=== PATIENT | female | born 1995 | race Two or more races ===

== ENCOUNTER 2016-10-03 12:28 | Emergency (ER) | payer MEDICAID ==
[2016-10-03 12:43] VITALS: BP 141/62; PULSE 74; RESP 18; TEMP 98; O2SAT 97
--- NOTE | 2016-10-03 13:19 | UCPHY ---
H & P Patient Type: New Smoking Status: Never smoked Time Seen by Provider: 10/03/16 13:02 HPI/ROS: HPI Left lower quadrant pain. 20-year-old female by private vehicle. This patient presents to Urgent Care complaining of intermittent crampy, stabbing the left lower quadrant pain onset yesterday. She reports that also has been associated with some vaginal bleeding which she describes as spotting on her underwear. She reports her last menstrual period was 3 months ago. She has a history of polycystic ovarian syndrome and she is currently on metformin for this. She also reports having a hard bowel movement yesterday but no blood per rectum and no bloody stool. She reports a normal bowel movement today. She has not had a fever. She has had no diarrhea or vomiting. No nausea. Last meal was prior to arrival at 12 noon. ROS: Constitutional: No fever, no chills. No weakness. Eyes: No discharge. No changes in vision. ENT: No sore throat. No nasal congestion or rhinorrhea. Respiratory: No cough. No shortness of breath. Cardiac: No chest pain, no palpitations. Gastrointestinal: As above, no vomiting, no diarrhea. Genitourinary: No hematuria. No dysuria or increased frequency with urination. As above. Musculoskeletal: No back pain. No neck pain. No myalgias or arthralgias. Skin: No rashes. Neurological: No headache. No focal weakness or altered sensation. Past medical history: Polycystic ovarian disease. She is on metformin. UTIs Social history: Here by herself. Nonsmoker. Physical Exam: General Appearance: Alert, no distress. Obese habitus. This patient is responding to questions appropriately and in full sentences. This patient appears well-hydrated and well-nourished. Eyes: Pupils equal and round no pallor or injection. No lid edema, erythema or injection. Respiratory: There are no retractions, lungs are clear to auscultation with good air movement bilaterally. Cardiovascular: Regular rate and rhythm. No murmur. Gastrointestinal: Obese habitus. Abdomen is soft with mild to moderate left lower quadrant tenderness on palpation, no masses, bowel sounds normal. No focal tenderness at McBurney's point. No Rondon sign. Neurological: Motor sensory function is grossly intact. Cranial nerves are normal. Gait is normal. Skin: Warm and dry, no rashes. Musculoskeletal: Neck is supple and nontender. Extremities are symmetrical. All joints range without pain or impingement. Psychiatric: No agitation. No depression. Database: EKG: Imaging: Upright abdominal x-ray series: No obstructive pattern. No free air. Some constipation. Interpreted by me. Pelvic ultrasound: Procedures: Emergency department course: Urine specimen obtained. Plan is to evaluate pelvic anatomy with ultrasound. Another likely source of pain is constipation. Upright abdominal x-ray series and pelvic ultrasound to be obtained. Patient given 600 mg of ibuprofen. Vital signs reviewed and are unremarkable 3:00 p.m., patient re-evaluated. She is sitting upright on the gurney using her cell phone. She appears comfortable. Results of her urinalysis, urine and abdominal x-ray were discussed with her. We are waiting the results of her pelvic ultrasound. 3:05 p.m., patient re-evaluated. She seems very comfortable. She has not had any further vaginal bleeding in the urgent care. Still awaiting results of ultrasound. Care will be turned over to Dr. Saud Maxwell at this time. Repeat abdominal exam on this patient, she was soft, nontender nondistended. She does not have any pain at this time. She does not have any contraindications to NSAIDs. Plan will be to discharge her, assuming no significant findings on her ultrasound, and have her follow up with her primary care physician for re-evaluation. Return to Urgent Care/emergency department precautions have been discussed with her. Follow-up was thoroughly reviewed. Differential Diagnosis: The differential diagnosis on this patient includes but is not limited to ovarian cyst, constipation, ureterolithiasis, dysfunctional uterine bleeding. Diverticulitis, volvulus, ectopic , urinary tract infection unlikely. This represents a partial list of diagnoses considered. These considerations are based on history, physical exam, past history, reassessment and diagnostic testing. (Raphael Lipscomb) Constitutional: Initial Vital Signs Temperature (C) 36.6 C 10/03/16 12:41 Heart Rate 74 10/03/16 12:41 Respiratory Rate 18 10/03/16 12:41 Blood Pressure 141/62 H 10/03/16 12:41 O2 Sat (%) 97 10/03/16 12:41 O2 Delivery Mode Room Air Allergies/Adverse Reactions: No Known Allergies Allergy (Verified 01/01/15 16:09) Home Medications: Medication Instructions Recorded Metformin HCl 10/03/16 Medical Decision Making - Diagnostics Imaging: Pelvic ultrasound: Ovaries not clearly visualized but no overt findings for enlarged ovaries, so this. There is no free fluid. Uterus appears normal per Dr. Eden, radiologist (Saud Maxwell) ED Course/Re-evaluation: I discussed the patient's ultrasound findings with her. The time of discharge she is comfortable. I think that her symptoms are attributable to constipation. (Saud Maxwell) - Data Points Laboratory Results: 10/03/16 10/03/16 13:05 13:05 Urine Color YELLOW Urine Appearance CLEAR Urine pH 5.5 (5.0-7.5) Ur Specific [place] 1.010 (1.002-1.030) Urine Protein 1+ H (NEGATIVE) Urine Ketones NEGATIVE (NEGATIVE) Urine Blood 3+ H (NEGATIVE) Urine Nitrate NEGATIVE (NEGATIVE) Urine Bilirubin NEGATIVE (NEGATIVE) Urine Urobilinogen 0.2 EU EU (0.2-1.0) Ur Leukocyte Esterase TRACE H (NEGATIVE) Urine RBC 50-182 /hpf H /hpf (0-3) Urine WBC 10-15 /hpf H /hpf (0-3) Ur Epithelial Cells TRACE /lpf /lpf (NONE-1+) Urine Bacteria 2+ /hpf H /hpf (NONE SEEN) Ur Culture Indicated? INDICATED H (NI) Urine Glucose NEGATIVE (NEGATIVE) Urine Test NEGATIVE Departure - Departure Disposition: Home, Routine, Self-Care Clinical Impression: Vaginal bleeding, Abdominal pain, left lower quadrant Condition: Good Instructions: Dysfunctional Uterine Bleeding (ED), Constipation (ED), High Fiber Diet (ED), Abdominal Pain (ED) Additional Instructions: Read and follow provided instructions. Follow-up with your primary care physician as discussed in 1-2 days for re- evaluation. Ibuprofen dosin mg every 6 hours with meals for the next 3 days only as needed for pain. Return to the emergency department or urgent care for worsening abdominal pain, fever, vomiting, bloody stool, worsening vaginal bleeding or other serious concerns. Referrals: Mar Mccoy MD [Primary Care Provider] - As per Instructions - PQRS PQRS Measurement: Not applicable. (Raphael Lipscomb)
[2016-10-03 13:22] LABS: COLOR YELLOW; LEUKOCYTE ESTERASE,URINE TRACE (NEGATIVE); NITRITE,URINE NEGATIVE (NEGATIVE); PH,URINE 5.5 (5.0-7.5)
[2016-10-03 13:30] LABS: BACTERIA 2+ /hpf (NONE SEEN); RBC,URINE 50-182 /hpf (0-3)
== END 2016-10-03 15:45 | disposition home or self-care (01) ==
LOC: CED 12:28
DX: R10.32 Left lower quadrant pain (principal); N93.9 Abnormal uterine and vaginal bleeding, unspecified; E28.2 Polycystic ovarian syndrome; Z87.440 Personal history of urinary (tract) infections
CPT/HCPCS: 74000-PO; 76856-PO; 81003-PO; 81015-PO; 81025-PO; 99203-PO; G0463-PO

== ENCOUNTER → 2016-10-29 | Outpatient (CLI) | payer MEDICAID | LOC: FIMAGING 15:14 | PROVIDERS: ATTEND Physician Assistant Medical | DX: G43.109 Migraine with aura, not intractable, without status migrainosus (principal) ==

== ENCOUNTER 2017-01-28 12:37 | Emergency (ER) | payer MEDICAID ==
[2017-01-28 12:52] VITALS: TEMP 98.4; O2SAT 97
--- NOTE | 2017-01-28 13:04 | EDPHY ---
H & P Time Seen by Provider: 01/28/17 12:48 HPI/ROS: CHIEF COMPLAINT: Left foot pain HISTORY OF PRESENT ILLNESS: Patient is a 21-year-old female who presents emergency department with left foot pain. She misstepped on the stairway folding her toes under her foot. This caused her to have significant pain on the lateral aspect of her left foot. Her pain is moderate. It is worse with ambulation. She has increased discomfort with extension of her plantar surface. She denies any ankle discomfort. No knee discomfort. She has a previous injury to her left ankle. REVIEW OF SYSTEMS: My complete review of systems is negative except as mentioned in the HPI. Past Medical/Surgical History: Left ankle sprain Smoking Status: Never smoked Physical Exam: Vitals noted General Appearance: Alert and no distress. Head: Pupils equal. Normal. Respiratory: No respiratory distress. Cardiac: regular rate and rhythm. Extremities: Patient has mild bruising at the base of her left 5th toe. Tenderness to palpation along her 4th and 5th metatarsal. The patient has no ankle tenderness palpation. No edema. No proximal tib-fib tenderness palpation. No tenderness palpation at the knee. Skin: No rashes or lesions. Neuro: Alert. Normal mood and affect. Constitutional: Initial Vital Signs Temperature (C) 36.9 C 01/28/17 12:47 Heart Rate 66 01/28/17 12:47 Respiratory Rate 18 01/28/17 12:47 Blood Pressure 112/72 01/28/17 12:47 O2 Sat (%) 97 01/28/17 12:47 O2 Delivery Mode Room Air Allergies/Adverse Reactions: No Known Allergies Allergy (Verified 01/01/15 16:09) Home Medications: Medication Instructions Recorded Metformin HCl 10/03/16 Medical Decision Making - Diagnostics Imaging Results: Imaging Impressions Foot X-Ray 01/28/17 12:53 Impression: Negative left foot radiographs. ED Course/Re-evaluation: In the emergency department I discussed possible etiologies with the patient. X -ray of the left foot was ordered. The foot x-ray: Please refer the dictated report by the radiologist. No fracture dislocation. Discussed the results with the patient. I answered all her questions. The patient was placed in a Jacques boot. She is given crutches. Patient will follow up with Orthopedics. She is given warnings prior to leaving. She will return with worsening symptoms. Differential Diagnosis: My differential includes but is not limited to fracture, dislocation, ligamentous injury, contusion Departure - Departure Disposition: Home, Routine, Self-Care Clinical Impression: Left foot pain Foot sprain Qualifiers: Encounter type: initial encounter Laterality: left Qualified Code(s): S93.602A - Unspecified sprain of left foot, initial encounter Condition: Good Instructions: Foot Sprain (ED) Additional Instructions: Use your splint as needed. Use your crutches as needed. Return with increasing pain, numbness or any other concerns. Referrals: Mar Mccoy MD [Primary Care Provider] - As per Instructions Ryne Chan MD [Medical Doctor] - 5-7 days, if not improved
[2017-01-28 13:35] VITALS: BP 117/79; PULSE 59; RESP 16
== END 2017-01-28 13:32 | disposition home or self-care (01) ==
LOC: CED 12:37
DX: S93.602A Unspecified sprain of left foot, initial encounter (principal); X58.XXXA Exposure to other specified factors, initial encounter
CPT/HCPCS: 73630-PO